=== PATIENT | male | born 1960 | race Caucasian/White ===

== ENCOUNTER 2022-08-21 06:36 | Day surgery (SDC) | payer OTHER, SELFPAY ==
[2022-08-21] VITALS (10 sets, daily range): BP systolic 147–169; BP diastolic 79–89; PULSE 61–71; RESP 14–16; TEMP 36.7–37.1; O2SAT 97–99; BMI 48.6
[2022-08-21] MEDS: BUPIVACAINE 0.5% 30 ML INJECTION (07:00)
[2022-08-21] MEDS: ETHYL CHLORIDE 1 APPLICATION 1 APPLIC TOPICAL (07:00)
--- NOTE | 2022-08-21 07:47 | P.ORPRC_ITS ---
Procedure Note Date of procedure: 08/21/22 Procedure: PREOPERATIVE DIAGNOSIS: 1. Right carpal tunnel syndrome POSTOPERATIVE DIAGNOSIS: 1. Right carpal tunnel syndrome PROCEDURE: 1. Right open carpal tunnel release SURGEON: Seth Rodas MD. SUPERVISOR M[employer] SHOP: Aquilino Fuentes PA-C ANESTHESIA: Local anesthetic (50:50 mixture of 1% lidocaine with epi and 0.5% marcaine plain) IMPLANTS: None EBL: 2 mL TOURNIQUET: None COMPLICATIONS: None evident INDICATIONS: The patient is a pleasant 62-year-old male who has experienced right hand numbess/tingling affecting the radial 3.5 digits for multiple months. It has progressively gotten worse. Nonoperative management has been tried and failed, and therefore surgery was recommended. DESCRIPTION OF PROCEDURE: Following a thorough discussion of risks, benefits, and alternatives consent was obtained and the operative extremity was marked. The patient was brought to the operating room and placed supine on the operating table. Local anesthesia induction was undertaken in preop holding. No antibiotics were administered as this was planned to be a local case only. Proper time-out was performed identifying proper patient, site, and procedure. The operative extremity was prepped and draped in the appropriate sterile fashion using ChloraPrep. An incision was made in line with the radial border of the ring finger beginning 1 cm distal to the distal wrist crease and progressing for another 2.5cm distal. Caution was taken to stay proximal to Kellogg's cardinal line. Sharp incision through the skin, subcutaneous tissue, and palmar fascia was performed. The thenar musculature was bluntly elevated off the transverse carpal ligament. The ligament was directly visualized, and divided sharply with a 15 blade. This was released from its most proximal to the most distal extent. Metzenbaum scissor was also utilized to release the fascia extension proximally. We confirmed complete release of the transverse carpal ligament. Closure was performed with 4-O nylon in interrupted fashion. Soft dressings were applied, and the patient was transferred to the recovery room in stable condition. PLAN: 1. Encourage elevation of the operative extremity. 2. Range of motion of the fingers and hand/wrist as tolerated. 3. Ibuprofen/acetaminophen and/or Percocet as needed for pain control. 4. Follow up with PA visit or nurse visit in 12-16 days for wound check and suture removal.
[2022-08-21] MEDS: NEOMYCIN/BACITRACIN/POLYMYXIN B 1 APPLIC TOPICAL (07:50)
--- NOTE | 2022-08-21 08:29 | SUR.PHASEII ---
Pt directly into recliner chair. Pt verbalized understanding of discharge instructions and readiness to be discharged.
== END 2022-08-21 08:15 | disposition home or self-care (01) ==
PROVIDERS: Visit Provider Orthopaedic Surgery Sports Medicine
PROC: (CPT 64721; principal; 2022-08-21 07:30)
DX: G56.01 Carpal tunnel syndrome, right upper limb (principal)
CPT/HCPCS: 64721; J3490

== ENCOUNTER 2022-09-25 06:28 | Day surgery (SDC) | payer OTHER, SELFPAY ==
[2022-09-25] VITALS (7 sets, daily range): BP systolic 145–169; BP diastolic 71–85; PULSE 63–70; RESP 14–16; TEMP 36.7–37.2; O2SAT 95–98; BMI 22.0
[2022-09-25] MEDS: BUPIVACAINE 0.5% 30 ML INJECTION (07:05)
[2022-09-25] MEDS: ETHYL CHLORIDE 1 APPLICATION 1 APPLIC TOPICAL (07:05)
--- NOTE | 2022-09-25 13:16 | PM.ORPRC ---
Procedure Note Date of procedure: 09/25/22 Procedure: PREOPERATIVE DIAGNOSIS: 1. Left carpal tunnel syndrome POSTOPERATIVE DIAGNOSIS: 1. Left carpal tunnel syndrome PROCEDURE: 1. Left open carpal tunnel release SURGEON: Seth Rodas MD. SOLAR [employer]GY SYSTEMS ENGINEER: GALI Foley ANESTHESIA: Local anesthetic (50:50 mixture of 2% lidocaine with epi and 0.5% marcaine plain) IMPLANTS: None EBL: 2 mL TOURNIQUET: None COMPLICATIONS: None evident INDICATIONS: The patient is a pleasant 62-year-old male who has experienced left hand numbess/tingling affecting the radial 3.5 digits for multiple months. It has progressively gotten worse. Nonoperative management has been tried and failed, and therefore surgery was recommended. DESCRIPTION OF PROCEDURE: Following a thorough discussion of risks, benefits, and alternatives consent was obtained and the operative extremity was marked. The patient was brought to the operating room and placed supine on the operating table. Local anesthesia induction was undertaken in preop holding. No antibiotics were administered as this was planned to be a local case only. Proper time-out was performed identifying proper patient, site, and procedure. The operative extremity was prepped and draped in the appropriate sterile fashion using ChloraPrep. An incision was made in line with the radial border of the ring finger beginning 1 cm distal to the distal wrist crease and progressing for another 2.5cm distal. Caution was taken to stay proximal to Kellogg's cardinal line. Sharp incision through the skin, subcutaneous tissue, and palmar fascia was performed. The thenar musculature was bluntly elevated off the transverse carpal ligament. The ligament was directly visualized, and divided sharply with a 15 blade. This was released from its most proximal to the most distal extent. Metzenbaum scissor was also utilized to release the fascia extension proximally. We confirmed complete release of the transverse carpal ligament. Closure was performed with 4-O nylon in interrupted fashion. Soft dressings were applied, and the patient was transferred to the recovery room in stable condition. PLAN: 1. Encourage elevation of the operative extremity. 2. Range of motion of the fingers and hand/wrist as tolerated. 3. Ibuprofen/acetaminophen and/or Percocet as needed for pain control. 4. Follow up with PA visit or nurse visit in 12-16 days for wound check and suture removal.
== END 2022-09-25 08:05 | disposition home or self-care (01) ==
PROVIDERS: Visit Provider Orthopaedic Surgery Sports Medicine
PROC: (CPT 64721; principal; 2022-09-25 07:30)
DX: G56.02 Carpal tunnel syndrome, left upper limb (principal)
CPT/HCPCS: 64721; J3490

== ENCOUNTER 2023-11-25 13:37 | Emergency (ER) | payer OTHER, SELFPAY ==
[2023-11-25] VITALS (43 sets, daily range): BP systolic 150–185; BP diastolic 84–100; PULSE 60–91; RESP 16–20; TEMP 36.6–36.7; O2SAT 93–96; BMI 22.0
--- NOTE | 2023-11-25 14:15 | ED_ITS ---
HPI - Abdominal Pain General Time Seen by Provider: 14:15 Date Seen: 11/25/23 Chief Complaint: Abdominal Pain Stated Complaint: Abdominal pain Time Seen by Provider: 11/25/23 14:13 Source: patient and RN notes reviewed Mode of arrival: ambulatory Limitations: no limitations History of Present Illness HPI narrative: This 63-year-old male is coming in with lower abdominal pain and pressure. He is feeling it throughout his lower abdomen. He had a mucousy stool that he felt was somewhat difficult to pass. States he has been having stools prior. He has never had a colonoscopy. He does admit that he has maybe had episodes like this but never as severe. There has been no fever. He was able to eat breakfast this morning, pain did not increase. Denies any urinary symptoms. He states he has not been to the doctor in quite a long time. It sounds as if it is least been years since he has seen a physician. He has had no abdominal surgeries. MD elicited complaint: abdominal pain Pertinent past history: none Related Data Home Medications Medication Instructions Recorded Confirmed No Known Home Medications 10/10/22 10/10/22 Allergies Allergy/AdvReac Type Severity Reaction Status Date / Time No Known Allergies Allergy Verified 10/10/22 08:30 Review of Systems Status of ROS Reports: 6 or more systems reviewed and unremarkable except as noted in History and below [facility] Medical History Carpal tunnel syndrome ?G56.00 - Carpal tunnel syndrome, unspecified upper limb (ICD-10) Skin cancer ?C44.90 - Unspecified malignant neoplasm of skin, unspecified (ICD-10) Surgical History History of carpal tunnel surgery of left wrist ?Z98.890 - Other specified postprocedural states (ICD-10) History of carpal tunnel surgery of right wrist ?Z98.890 - Other specified postprocedural states (ICD-10) Social History Smoking Status: Current every day smoker What tobacco products do you use: cigarettes Second hand tobacco smoke exposure: Yes How often do you have a drink containing alcohol: never How often do you have six or more drinks on one occasion: Never AUDIT-C Alcohol total score: 0 Non-prescribed substance use: denies use service: No Exam Const: Vital Signs, click to edit/add: Vital Signs - 24 hr 11/25/23 13:48 11/25/23 14:28 11/25/23 14:30 Temperature 98.1 F Pulse Rate Pulse Rate [Right Pulse Oximeter] 78 71 Respiratory Rate 20 16 Blood Pressure Blood Pressure [Ri ght Upper Arm] 185/100 H 165/85 H Pulse Oximetry 96 96 96 Oxygen Delivery Me thod Room Air 11/25/23 15:14 11/25/23 15:15 11/25/23 15:30 Temperature Pulse Rate 69 79 65 Pulse Rate [Right Pulse Oximeter] Respiratory Rate Blood Pressure Blood Pressure [Ri ght Upper Arm] Pulse Oximetry 95 96 96 Oxygen Delivery Me thod 11/25/23 15:36 11/25/23 15:46 11/25/23 16:00 Temperature Pulse Rate 65 69 64 Pulse Rate [Right Pulse Oximeter] Respiratory Rate Blood Pressure 150/84 H Blood Pressure [Ri ght Upper Arm] Pulse Oximetry 95 95 96 Oxygen Delivery Me thod 11/25/23 16:15 11/25/23 16:33 11/25/23 16:45 Temperature Pulse Rate 66 91 65 Pulse Rate [Right Pulse Oximeter] Respiratory Rate Blood Pressure Blood Pressure [Ri ght Upper Arm] Pulse Oximetry 95 95 95 Oxygen Delivery Me thod 11/25/23 17:00 11/25/23 17:15 11/25/23 17:30 Temperature Pulse Rate 76 68 71 Pulse Rate [Right Pulse Oximeter] Respiratory Rate Blood Pressure Blood Pressure [Ri ght Upper Arm] Pulse Oximetry 95 95 95 Oxygen Delivery Me thod 11/25/23 17:45 11/25/23 18:00 11/25/23 18:15 Temperature Pulse Rate 65 67 72 Pulse Rate [Right Pulse Oximeter] Respiratory Rate Blood Pressure Blood Pressure [Ri ght Upper Arm] Pulse Oximetry 95 96 94 Oxygen Delivery Me thod 11/25/23 18:30 11/25/23 18:45 11/25/23 19:00 Temperature Pulse Rate 75 80 63 Pulse Rate [Right Pulse Oximeter] Respiratory Rate Blood Pressure Blood Pressure [Ri ght Upper Arm] Pulse Oximetry 94 95 95 Oxygen Delivery Me thod 11/25/23 19:12 11/25/23 19:13 11/25/23 19:15 Temperature Pulse Rate 79 63 63 Pulse Rate [Right Pulse Oximeter] Respiratory Rate Blood Pressure 150/84 H Blood Pressure [Ri ght Upper Arm] Pulse Oximetry 95 95 94 Oxygen Delivery Me thod 11/25/23 19:30 11/25/23 19:45 11/25/23 20:00 Temperature Pulse Rate 62 63 60 Pulse Rate [Right Pulse Oximeter] Respiratory Rate Blood Pressure Blood Pressure [Ri ght Upper Arm] Pulse Oximetry 94 94 95 Oxygen Delivery Me thod 11/25/23 20:15 11/25/23 20:30 Temperature Pulse Rate 63 62 Pulse Rate [Right Pulse Oximeter] Respiratory Rate Blood Pressure Blood Pressure [Ri ght Upper Arm] Pulse Oximetry 95 94 Oxygen Delivery Me thod Patient is a 63-year-old male that is alert, interactive, no apparent distress, ambulatory into the ED of his own accord. He is of slender build. Sclera clear, conjugate gaze. Speech is normal. Lungs are clear, good air entry, no wheezing or crackles. CV regular rate rhythm, no murmur, normal S1-S2, no S3- S4. Abdomen is flat, does have bowel sounds, no distension. Has mild tenderness throughout his lower abdomen, feel no organomegaly. Did have nursing staff attempt a bladder scan but patient had just given urinalysis, bladder was emptied. He has no lower extremity edema. Documenting provider has reviewed patient's vital signs: yes Course Course ED Course: Patient is a 63-year-old male with lower abdominal pain, does not seem that tender on examination, do not feel any masses. Certainly this could be urinary source, bowel such as diverticulitis. Patient has never had a colonoscopy, could be other more concerning pathology. Given his age and lack of routine medical cares, do think we should proceed with CT imaging with IV contrast. Have reviewed with them we need to get his creatinine back 1st which can take a bit and then we would proceed with CT imaging, preferentially with IV contrast. He seems quite stable right now, does state he would like something for pain. Will give him 15 mg IV Toradol while we wait for labs and imaging. Reevaluation(s) Time of Reevaluation #1: 18:22 Reevaluation #1: Had received a phone call from the radiologist after he read this in subsequently went and talked to the patient. Did briefly discuss this with our general surgeon on-call Dr. Andino, she will attempt to look at his CT images once home. 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 His notes he did go to the doctor wants when his knee hurt and got x-rays. Otherwise he has not had care. He notes that he just had the mucousy stool today, yesterday did not have a stool, prior to that for about a week has had small amount of more water ear diarrheal stools, probably small volume. He admits that he has had intermittent stool changes of this nature for probably about a year. He is not passed any gas today on questioning. Will initiate IV fluid, await for Dr. Andino to look at films and talk to our hospitalist but suspect he may need transfer to a tertiary facility where there is GI and colorectal surgery. Time of Reevaluation #2: 20:41 Reevaluation #2: Updated the patient that we are just working on arranging transfer and acceptance at [facility] if possible. He feels no nausea, pain is controlled. He does tell me that he has passed a little gas since I last talked to him. He will let us know if he is having pain or nausea. Hopefully he will transfer to [facility] tonight, am waiting to talk to the hospitalist. Consultations Consultation #1: Dr. Andino felt that if this patient is not toxic, could consider attempting gentle gastrograffin enema in the am; then potentially prep for colonoscopy. Did also talk to our hospitalist whom felt that this patient would be best served by transfer where he can receive multi-speciality cares; Dr. Andino is supportive of this as well. At 19:29 did talk to GI at [facility] Dr. Sauer whom felt that this patient needed to go to surgery service. They are working on paging either colorectal or general surgery at [facility] that may accept this patient. The transfer center had talked to 1 colorectal surgeon on-call whom said we needed to talk to General surgery and he himself was not on-call for the facility. At 8:[address] Will a general surgeon, when he started to review the case he did state that this should go to colorectal. He also reviewed with me that the patient needs a diagnosis, perhaps consideration for sigmoidoscopy to get a biopsy. The transfer center is going to kindly try to page the hospitalist as recommended by Dr. Will. It appears that they are having difficulty finding the colorectal surgeon that is on-call tonight for [facility] possibly. 1848pm, spoke with Dr. Bingham hospitalist from [facility]. We reviewed the case. I will make sure images get pushed up to him. He agrees that this patient needs further workup and evaluation in the specialty services that they can provide there. Right now patient is only on IV fluids, they will transfer to their observation unit. If higher level of care/longer cares anticipated, they can work on admission placement later. Time: 19:08 Vital Signs Vital signs: Initial Vital Signs Temperature 98.1 F 11/25/23 13:48 Temperature Source Temporal Artery Scan 11/25/23 13:48 Pulse Rate 78 11/25/23 13:48 Pulse Rhythm Regular 11/25/23 13:48 Pulse Strength 3+ Normal 11/25/23 13:48 Respiratory Rate 20 11/25/23 13:48 Blood Pressure 185/100 H 11/25/23 13:48 Blood Pressure Mean 128 H 11/25/23 13:48 Blood Pressure Position Supine 11/25/23 13:48 Pulse Oximetry 96 11/25/23 13:48 Oxygen Delivery Method Room Air 11/25/23 13:48 Vital Signs Temperature 98.1 F 11/25/23 13:48 Pulse Rate 78 11/25/23 13:48 Respiratory Rate 20 11/25/23 13:48 Blood Pressure 185/100 H 11/25/23 13:48 Pulse Oximetry 96 11/25/23 13:48 Oxygen Delivery Method Room Air 11/25/23 13:48 Temperature 97.9 F 11/25/23 23:56 Pulse Rate 61 11/25/23 23:43 Respiratory Rate 16 11/25/23 14:30 Blood Pressure 150/93 H 11/25/23 23:43 Pulse Oximetry 94 11/25/23 23:43 Oxygen Delivery Method Room Air 11/25/23 13:48 Medications Administered Medications: Discontinued Medications Generic Name Dose Route Start Last Admin Trade Name Freq PRN Reason Stop Dose Admin Ketorolac Tromethamine 15 mg 11/25/23 14:27 11/25/23 14:44 Ketorolac 15 Mg/Ml Inj IVP 11/25/23 14:28 15 mg ONCE ONE Administration MDM - Abdominal Pain Lab Data Attestation: I reviewed the patient's lab results. Labs: Lab Results 11/25/23 11/25/23 Range/Units 15:20 Unknown WBC 7.14 (4.50-11.00) K/uL RBC 4.31 (4.30-5.90) m/uL Hgb 13.9 (13.5-17.5) gm/dL Hct 40.9 (37.0-53.0) % MCV 95 (80-100) fL MCH 32 (26-34) pg MCHC 34 (32-36) gm/dL RDW Coeff of Juan David 13.0 (11.5-15.5) % Plt Count 210 (140-440) K/uL Neut % (Auto) 81.4 H (42.0-72.0) % Lymph % (Auto) 8.7 L (20-44) % Norton % (Auto) 8.1 (0.0-11.0) % Eos % (Auto) 0.8 (0.0-7.0) % Baso % (Auto) 0.3 (0.0-3.0) % Neut # (Auto) 5.80 (1.7-7.0) K/uL Lymph # (Auto) 0.60 L (0.90-2.90) K/uL Norton # (Auto) 0.60 (0.00-0.90) K/UL Eos # (Auto) 0.06 (0.00-0.50) K/uL Baso # (Auto) 0.02 (0.00-0.30) K/uL Abs Immat Gran (auto) 0.05 (0.00-0.30) K/uL Imm/Tot Granulo (auto) 0.7 % Sodium 135 (135-149) mmol/L Potassium 3.8 (3.6-5.1) mmol/L Chloride 102 (96-114) mmol/L Carbon Dioxide 25 (20-32) mmol/L Anion Gap 8 (7-15) mEq/L BUN 14 (7-30) mg/dL Creatinine 0.5 (0.5-1.5) mg/dL Estimated Creat Clear 69.42 Estimated GFR 114 ml/min Glucose 124 H (60-115) mg/dL Lactate 0.8 (0.5-1.9) mmol/L Calcium 9.6 (8.4-10.6) mg/dL Total Bilirubin 0.7 (0.1-1.5) mg/dL AST 33 (12-35) U/L ALT 24 (4-50) U/L Alkaline Phosphatase 86 (40-150) U/L C-Reactive Protein 0.5 (0.5-1.0) mg/dL Total Protein 7.6 (6.0-8.3) g/dL Albumin 4.5 (3.3-5.0) g/dL Urine Color Yellow (Yellow) Urine Appearance Cloudy A (Clear) Urine pH 7.5 (5.0-8.5) Ur Specific [place] 1.015 (1.000-1.030) Urine Protein Negative (Negative) Urine Glucose (UA) Negative (Negative) Urine Ketones Negative (Negative) Urine Blood Trace-intact A (Negative) Urine Nitrite Negative (Negative) Urine Bilirubin Negative (Negative) Urine Urobilinogen 1.0 (0.2-1.0) Ur Leukocyte Esterase Negative (Negative) Urine RBC 0-2 (0-2) Urine WBC 0-2 (0-5) Ur Squamous Epith Cells None (None-Few) Amorphous Sediment Moderate A (None) Urine Bacteria None (None) Imaging Data CT scan - abdomen: Attestation: I have reviewed the pertinent imaging results. Radiologist's impression: Patient: REINALDO AAAAAAAAAAAAAAAAAA [facility] Facility:?[facility] Patient ID:?[id number] Study:?CT Abdomen/Pelvis W/IV-11/25/2023 4:36:50 PM Ordering Physician:?Rocio Aguiar Final Report: INDICATION: Lower abdominal pain. TECHNIQUE: CT abdomen and pelvis acquired with 100 cc Omnipaque 350 IV contrast. COMPARISON: None. FINDINGS: Lower chest: Scattered atelectasis. Liver: Unremarkable. Normal in size and attenuation. No suspicious masses. Gallbladder and bile ducts: Unremarkable. No stones or inflammation. No biliary dilatation. Pancreas: Unremarkable. No mass or inflammation. Spleen: Unremarkable. Normal in size. No masses. Adrenal glands: Bilateral adrenal nodules with low attenuation, likely adenomas. Kidneys: Bilateral simple renal cysts. Additional hypodensities in both kidneys, too small to characterize. No suspicious masses, stones, or hydronephrosis. GI tract: Circumferential wall thickening of the sigmoid colon and rectum. Multiple dilated loops of colon to the level of the distal descending colon with transition point in the left lower quadrant with some swirling of the vasculature (series 2/image 85, series 4/image 46).moderate colonic stool burden. Vasculature: Moderate aortoiliac arterial calcifications. Abdominal aorta is normal in caliber. Mesenteric arteries are patent. Lymph nodes: No lymphadenopathy. Peritoneum/Abdominal Wall: Unremarkable. No sign of mass or infiltration. No free air or significant free fluid. Pelvis: Small volume of fluid in the pelvis likely reactive. Mild prostatomegaly. Bones: Degenerative changes. IMPRESSION: Circumferential wall thickening of the sigmoid colon and rectum suggestive of proctocolitis. Multiple dilated loops of colon to the level of the distal descending colon with transition point in the left lower quadrant causing narrow of two loops of adjacent sigmoid colon with some swirling of the vasculature. Colonic obstruction (including closed loop) secondary to internal hernia is not excluded, although lack of severe sigmoid dilation or small-bowel dilation would argue against high-grade obstruction. Moderate proximal colonic stool burden. Case discussed with Stefania Chan at 6 p.m. on 11/25/2023. Please note that all CT scans at this facility use dose modulation, iterative reconstruction, and/or weight-based dosing when appropriate to reduce radiation dose to as low as reasonably achievable. Dictated by Norman Justice MD @ 11/25/2023 5:51:54 PM (Electronic Signature) Discharge Plan Discharge Clinical Impression: Colonic obstruction, Proctocolitis Patient Disposition: Xfer Acute Care Hospital Discharge Location: [facility]
--- NOTE | 2023-11-25 14:28 | CRLHL7_ITS ---
For Patients: As a result of the Century Cures Act, medical imaging exams and procedure reports are released immediately into your electronic medical record. You may view this report before your referring provider. If you have questions, please contact your health care provider. INDICATION: Lower abdominal pain. TECHNIQUE: CT abdomen and pelvis acquired with 100 cc Omnipaque 350 IV contrast. COMPARISON: None. FINDINGS: Lower chest: Scattered atelectasis. Liver: Unremarkable. Normal in size and attenuation. No suspicious masses. Gallbladder and bile ducts: Unremarkable. No stones or inflammation. No biliary dilatation. Pancreas: Unremarkable. No mass or inflammation. Spleen: Unremarkable. Normal in size. No masses. Adrenal glands: Bilateral adrenal nodules with low attenuation, likely adenomas. Kidneys: Bilateral simple renal cysts. Additional hypodensities in both kidneys, too small to characterize. No suspicious masses, stones, or hydronephrosis. GI tract: Circumferential wall thickening of the sigmoid colon and rectum. Multiple dilated loops of colon to the level of the distal descending colon with transition point in the left lower quadrant with some swirling of the vasculature (series 2/image 85, series 4/image 46).moderate colonic stool burden. Vasculature: Moderate aortoiliac arterial calcifications. Abdominal aorta is normal in caliber. Mesenteric arteries are patent. Lymph nodes: No lymphadenopathy. Peritoneum/Abdominal Wall: Unremarkable. No sign of mass or infiltration. No free air or significant free fluid. Pelvis: Small volume of fluid in the pelvis likely reactive. Mild prostatomegaly. Bones: Degenerative changes. IMPRESSION: Circumferential wall thickening of the sigmoid colon and rectum suggestive of proctocolitis. Multiple dilated loops of colon to the level of the distal descending colon with transition point in the left lower quadrant causing narrow of two loops of adjacent sigmoid colon with some swirling of the vasculature. Colonic obstruction (including closed loop) secondary to internal hernia is not excluded, although lack of severe sigmoid dilation or small-bowel dilation would argue against high-grade obstruction. Moderate proximal colonic stool burden. Case discussed with Stefania Chan at 6 p.m. on 11/25/2023. Please note that all CT scans at this facility use dose modulation, iterative reconstruction, and/or weight-based dosing when appropriate to reduce radiation dose to as low as reasonably achievable. Dictated by Norman Justice MD @ 11/25/2023 5:51:54 PM (Electronically Signed)
[2023-11-25] MEDS: KETOROLAC 15 MG/ML inj IVP (14:44)
[2023-11-25 15:27] LABS: Lactate* 0.8 mmol/L (0.5-1.9)
[2023-11-25 15:29] LABS: Basophils Absolute Auto 0.02 K/uL (0.00-0.30); Basophils Percent Auto 0.3 % (0.0-3.0); Eosinophils Absolute Auto 0.06 K/uL (0.00-0.50); Eosinophils Percent Auto 0.8 % (0.0-7.0); Hematocrit 40.9 % (37.0-53.0); Hemoglobin* 13.9 gm/dL (13.5-17.5); Immature Granulocytes Abs Auto 0.05 K/uL (0.00-0.30); Immature Granulocytes Pct Auto 0.7 %; Lymphocytes Percent Auto 8.7 % (20-44); Mean Corpuscular HGB Conc 34 gm/dL (32-36); Mean Corpuscular Hemoglobin 32 pg (26-34); Mean Corpuscular Volume 95 fL (80-100); Monocytes Percent Auto 8.1 % (0.0-11.0); Neutrophils Percent Auto 81.4 % (42.0-72.0); Platelet Count* 210 K/uL (140-440); Red Blood Count 4.31 m/uL (4.30-5.90); White Blood Count* 7.14 K/uL (4.50-11.00)
[2023-11-25 15:30] LABS: Slide Review Reflex No
[2023-11-25 15:43] LABS: Albumin* 4.5 g/dL (3.3-5.0); Chloride* 102 mmol/L (96-114)
[2023-11-25 15:44] LABS: Potassium* 3.8 mmol/L (3.6-5.1); Sodium* 135 mmol/L (135-149)
[2023-11-25 15:46] LABS: Bilirubin Total* 0.7 mg/dL (0.1-1.5); Creatinine* 0.5 mg/dL (0.5-1.5); Est. Creatinine Clearance* 69.42; Estimated Glomerular Filt Rate 114 ml/min
[2023-11-25 15:47] LABS: Alanine Aminotransferase* 24 U/L (4-50); Alkaline Phosphatase* 86 U/L (40-150); Aspartate Amino Transferase* 33 U/L (12-35); Blood Urea Nitrogen* 14 mg/dL (7-30); Calcium* 9.6 mg/dL (8.4-10.6); Glucose* 124 mg/dL (60-115); Total Protein* 7.6 g/dL (6.0-8.3)
[2023-11-25 15:50] LABS: C Reactive Protein* 0.5 mg/dL (0.5-1.0)
[2023-11-25 15:51] LABS: Appearance Urine Cloudy (Clear); Bilirubin Urine Negative (Negative); Blood Urine Trace-intact (Negative); Color Urine Yellow (Yellow); Glucose Urine Negative (Negative); Ketones Urine Negative (Negative); Leukocyte Esterase Urine Negative (Negative); Nitrite Urine Negative (Negative); Protein Urine Negative (Negative); Specific Gravity Urine 1.015 (1.000-1.030); pH Urine 7.5 (5.0-8.5)
[2023-11-25 16:04] LABS: Anion Gap 8 mEq/L (7-15); Carbon Dioxide* 25 mmol/L (20-32)
[2023-11-25 16:10] LABS: RBC Urine 0-2 (0-2); WBC Urine 0-2 (0-5)
[2023-11-25 16:11] LABS: Amorphous Sediment Urine Moderate
--- NOTE | 2023-11-25 23:46 | ED.NURSE ---
Report given to [facility]. Patient will be going to [address], bed #2.
== END 2023-11-26 00:15 | disposition short-term general hospital (02) ==
PROVIDERS: Emergency Provider Family Medicine; PCP Family Medicine
DX: K56.699 Other intestinal obstruction unspecified as to partial versus complete obstruction (principal); K51.30 Ulcerative (chronic) rectosigmoiditis without complications
CPT/HCPCS: 36415; 74177; 80053; 81001; 83605; 85025; 86140; 94761; 96374; 99284; J1885; Q9967

== ENCOUNTER 2023-11-26 | Outpatient (CLI) | payer OTHER, SELFPAY | END 2023-11-26 00:01 | disposition home or self-care (01) | LOC: AMB 12:44 | PROVIDERS: PCP Family Medicine; Visit Provider Student in an Organized Health Care Education/Training Program | DX: R10.9 Unspecified abdominal pain (principal) | CPT/HCPCS: A0425; A0427 ==